=== PATIENT | female | born 1965 | race Caucasian/White ===

== ENCOUNTER → 2018-03-06 | Outpatient (CLI) | payer OTHER ==
--- NOTE | 2018-03-06 14:51 | XR ---
Lumbar spine HISTORY: Low back pain, trauma 4 days prior 3 views of the lumbar spine Bone mineralization is reduced. Lumbar vertebral bodies show preserved height and alignment. Sclerosi s present in the posterior elements of the lower lumbar spine compatible with facet arthropathy. Ther e is mild multilevel spondylosis. Spinal curvature could be positional. Loss of disc height present a t L2-3. IMPRESSION: Degenerative disc disease and facet arthropathy. Osteopenia. Additional findings above.
== END | disposition home or self-care (01) ==
LOC: RADXRYALE 11:43
PROVIDERS: ATTEND Family Medicine
DX: M51.36 Other intervertebral disc degeneration, lumbar region (principal); M46.96 Unspecified inflammatory spondylopathy, lumbar region; M85.80 Other specified disorders of bone density and structure, unspecified site; M47.816 Spondylosis without myelopathy or radiculopathy, lumbar region; M12.88 Other specific arthropathies, not elsewhere classified, other specified site
CPT/HCPCS: 72100

== ENCOUNTER 2022-04-02 12:28 | Emergency (ER) | payer BC ==
[2022-04-02 12:35] VITALS: BP 136/78; PULSE 60; RESP 20; TEMP 98.1
--- NOTE | 2022-04-02 13:48 | ED ---
Lower Extremity Injury HPI - General Chief Complaint: Extremity Injury, Lower Stated Complaint: rt foot injury Time Seen by Provider: 04/02/22 12:35 Source: patient, RN notes reviewed Mode of arrival: wheelchair Limitations: no limitations - History of Present Illness Initial Comments: 56-year-old female presents emergency department with chief complaint of right foot pain. Patient states that she tripped over the dog gate states that she twists her foot. Patient wasn't abrasion, swelling to her right foot. Patient denies any other injuries no prior fractures. Patient states cannot put any weight on her right foot. - Related Data Allergies Allergy/AdvReac Type Severity Reaction Status Date / Time No Known Allergies Allergy Verified 04/02/22 12:35 Review of Systems ROS Statement: Those systems with pertinent positive or pertinent negative responses have been documented in the HPI. ROS Other: All systems not noted in ROS Statement are negative. Past Medical History Additional Past Medical History / Comment(s): MVP History of Any Multi-Drug Resistant Organisms: None Reported Past Surgical History: Section Additional Past Surgical History / Comment(s): hand surgery, foot surgery Past Psychological History: No Psychological Hx Reported Smoking Status: Current every day smoker Past Alcohol Use History: Occasional Past Drug Use History: None Reported General Exam Limitations: no limitations General appearance: alert, in no apparent distress Head exam: Present: atraumatic, normocephalic, normal inspection Eye exam: Present: normal appearance, PERRL, EOMI. Absent: scleral icterus, conjunctival injection, periorbital swelling Neck exam: Present: normal inspection, full ROM. Absent: tenderness, meningismus, lymphadenopathy Respiratory exam: Present: normal lung sounds bilaterally. Absent: respiratory distress, wheezes, rales, rhonchi, stridor Cardiovascular Exam: Present: regular rate, normal rhythm, normal heart sounds. Absent: systolic murmur, diastolic murmur, rubs, gallop, clicks Extremities exam: Present: other (Right foot there is swelling noted, ecchymosis tenderness of the fifth metatarsal region no ankle tenderness Refill less than 2 seconds) Course Vital Signs 04/02/22 12:32 Temperature 98.1 F Pulse Rate 60 Respiratory 20 Rate Blood Pressure 136/78 O2 Sat by Pulse 99 Oximetry Procedures - Orthopedic Splinting/Casting Injury #1 Side: right Lower Extremity Injury Location: short leg, foot Lower Extremity Immobilizer: posterior splint, synthetic pre-padded splint Other Orthopedic Equipment: crutches Medical Decision Making - Medical Decision Making X-ray shows evidence of fifth metatarsal fracture patient was splinted, given crutches will follow-up with orthopedics. Disposition Clinical Impression: Displaced fracture of fifth metatarsal bone, right foot, initial encounter for closed fracture Disposition: HOME SELF-CARE Condition: Stable Instructions (If sedation given, give patient instructions): Foot Fracture in Adults (ED) Additional Instructions: Please return to the Emergency Department if symptoms worsen or any other concerns. Is patient prescribed a controlled substance at d/c from ED?: No Referrals: Flako Glez DO [Primary Care Provider] - 1-2 days Julisa Gerber DO [Doctor of Osteopathic Medicine] - 1-2 days Time of Disposition: 13:48
--- NOTE | 2022-04-02 14:29 | XR ---
EXAMINATION TYPE: Three-view right foot DATE OF EXAM: 04/02/2022 COMPARISON: None HISTORY: Pain after stepping wrong TECHNIQUE: Three-view right foot FINDINGS: There is an oblique fracture through the mid to distal diaphyseal fifth metatarsal. No additional fractures are evident. Plantar calcaneal heel spur is present. Soft tissues appear norm al. IMPRESSION: 1. Oblique fracture distal diaphyseal fifth metacarpal.
== END 2022-04-02 14:16 | disposition home or self-care (01) ==
LOC: EC 12:28
DX: S92.351A Displaced fracture of fifth metatarsal bone, right foot, initial encounter for closed fracture (principal); F17.200 Nicotine dependence, unspecified, uncomplicated; X50.9XXA Other and unspecified overexertion or strenuous movements or postures, initial encounter
CPT/HCPCS: 99283

== ENCOUNTER → 2022-05-16 | Outpatient (CLI) | payer BC ==
--- NOTE | 2022-05-16 09:40 | CT ---
EXAMINATION TYPE: CT foot RT wo con DATE OF EXAM: 05/16/2022 COMPARISON: X-ray 04/02/2022 HISTORY: Displaced fracture of 5th Metatarsal bone Rt Foot CT DLP: 147.30 mGycm Automated exposure control for dose reduction was used. FINDINGS: There is an oblique fracture through the mid to distal diaphyseal fifth metatarsal. No additional fra ctures are evident. Plantar calcaneal heel spur is present. Soft tissues appear normal. Tiny plantar calcaneal spur. IMPRESSION: OBLIQUE DISPLACED FRACTURE SHAFT FIFTH METATARSAL.
== END | disposition home or self-care (01) ==
LOC: RADCTMAIN 07:10
PROVIDERS: ATTEND Podiatrist
DX: S92.351A Displaced fracture of fifth metatarsal bone, right foot, initial encounter for closed fracture (principal)

== ENCOUNTER → 2024-02-23 | Outpatient (CLI) | payer BC ==
--- NOTE | 2024-03-04 12:32 | MM ---
Reason for Exam: Screening (asymptomatic). Last mammogram was performed 12 year(s) and 4 month(s) ago. Patient History: Menarche at age 15. First Full-Term at age 33. Late child-bearing (after 30). Postmenopausal. Patient used Hormonal Contraceptives for 10 years. Risk Values: Marisela 5 year model risk: 1.7%. NCI Lifetime model risk: 10.9%. Prior Study Comparison: 10/28/2011 Bilateral Screening Mammogram, [facility]. 11/11/2011 Right Diagnostic Ultrasound, [facility]. Tissue Density: The breasts are heterogeneously dense, which may obscure small masses. Findings: Analyzed By CAD. Right breast: Asymmetries right breast CC view posterior laterally Left breast: Asymmetry left breast MLO view upper aspect middle depth. Overall Assessment: Incomplete: need additional imaging evaluation, BI-RAD 0 Management: Diagnostic Mammogram of both breasts. [facility] will attempt to contact patient to return for supplemental views and ultrasound if indicated. Patient should continue monthly self-breast exams. A clinical breast exam by your physician is recommended on an annual basis. This exam should not preclude additional follow-up of suspicious palpable abnormalities. Note on Marisela scores and lifetime risk: 1. A Marisela score greater than 3% is considered moderate risk. If this is the case, consider specialist referral to assess eligibility for a risk reducing agent. 2. If overall lifetime risk for the development of breast cancer is 20% or higher, the patient may qualify for future screening with alternating mammogram and breast MRI. [facility], , 03/04/2024 12:29 PM. Electronically signed and approved by: Mannie Ramos DO
--- NOTE | 2024-03-04 21:27 | BD ---
EXAMINATION TYPE: Axial Bone Density DATE OF EXAM: 02/23/2024 CLINICAL HISTORY: 58 years old Female. ICD-10 CODE: Z78.0 ASYMP FRITZ STATE Height: 66.2in Weight: 127lb FRAX RISK QUESTIONS: History of Fracture in Adulthood: yes Secondary Osteoporosis: Current Tobacco Use: yes RISK FACTORS HISTORY OF: MEDICATIONS: EXAM MEASUREMENTS: Bone mineral densitometry was performed using the [employer] System. Bone mineral density as measured about the Lumbar spine is: ----- L1-L4(G/cm2): 0.939 T Score Values are as follows: ----- L1: -1.9 ----- L2: -2.2 ----- L3: -1.5 ----- L4: -2.5 ----- L1-L4: -2.0 Z Score Values are as follows: ----- L1: -0.7 ----- L2: -1.0 ----- L3: -0.3 ----- L4: -1.3 ----- L1-L4: -0.8 First dexa at [facility] Bone mineral density about the R hip (g/cm2): 0.717 Bone mineral density about the L hip (g/cm2): 0.722 T Score values are as follows: -----R Neck: -2.0 -----L Neck: -2.0 -----R Total: -2.3 -----L Total: -2.3 Z Score values are as follows: -----R Neck: -0.8 -----L Neck: -0.7 -----R Total: -1.4 -----L Total: -1.3 First dexa at [facility] FRAX%s: The graph provided illustrates a 14% chance for a major osteoporotic fx and a 3.4% chance for the hips probability for fx in 10 years time. IMPRESSION: Osteopenia (T Score between -2.5 and -1). There is slightly increased risk of fracture and the patient may be considered for treatment. Re-Screen 2-5 years. NOTE: T-SCORE=SD OF THE YOUNG ADULT MEAN. [facility], , 03/04/2024 9:24 PM
== END | disposition home or self-care (01) ==
LOC: RADMAMWWP 11:55
PROVIDERS: ATTEND Family Medicine
DX: Z12.31 Encounter for screening mammogram for malignant neoplasm of breast (principal); Z78.0 Asymptomatic menopausal state; R92.333 Mammographic heterogeneous density, bilateral breasts; M81.8 Other osteoporosis without current pathological fracture
CPT/HCPCS: 77067; 77080

== ENCOUNTER → 2024-03-15 | Outpatient (CLI) | payer BC ==
--- NOTE | 2024-03-15 14:59 | MM ---
Reason for Exam: Additional evaluation requested from abnormal screening. Last screening mammogram was performed less than 1 month ago. Patient History: Menarche at age 15. First Full-Term at age 33. Late child-bearing (after 30). Postmenopausal. Patient used Hormonal Contraceptives for 10 years. Risk Values: Marisela 5 year model risk: 1.7%. NCI Lifetime model risk: 10.9%. Prior Study Comparison: 10/28/2011 Bilateral Screening Mammogram, [facility]. 02/23/2024 Bilateral MG screening mammo w CAD, [facility]. Tissue Density: The breasts are extremely dense, which lowers the sensitivity of mammography. Findings: Analyzed By CAD. No persistent nodule or mass. Overall Assessment: Negative, BI-RAD 1 Management: Screening Mammogram of both breasts in 1 year. . Results were given to the patient verbally at the time of exam. Patient should continue monthly self-breast exams. A clinical breast exam by your physician is recommended on an annual basis. This exam should not preclude additional follow-up of suspicious palpable abnormalities. Note on Marisela scores and lifetime risk: 1. A Marisela score greater than 3% is considered moderate risk. If this is the case, consider specialist referral to assess eligibility for a risk reducing agent. 2. If overall lifetime risk for the development of breast cancer is 20% or higher, the patient may qualify for future screening with alternating mammogram and breast MRI. [facility], , 03/15/2024 2:56 PM. Electronically signed and approved by: Nelson Hidalgo M.D. Radiologis
== END | disposition home or self-care (01) ==
LOC: RADMAMWWP 14:36
PROVIDERS: ATTEND Family Medicine
CPT/HCPCS: 77062; 77066